=== PATIENT | female | born 1955 | race Caucasian/White ===

== ENCOUNTER 2017-02-20 10:08 | Outpatient (CLI) | payer BC | END 2017-02-20 10:09 | disposition home or self-care (01) | DX: M77.31 Calcaneal spur, right foot (principal) ==

== ENCOUNTER 2021-04-06 05:04 | Outpatient (CLI) | payer MEDICARE, OTHER | END 2021-04-06 05:05 | disposition EMS.NT | LOC: EMS 05:04 | DX: M25.512 Pain in left shoulder (principal); R07.81 Pleurodynia ==

== ENCOUNTER 2021-04-06 05:47 | Emergency (ER) | payer MEDICARE, OTHER ==
[2021-04-06] MEDS ORDERED: KETOROLAC 60 MG/2 ML VIAL IM STA (06:08)
[2021-04-06] MEDS ORDERED: HYDROmorphone 1 MG/ML CARPUJECT IM STA (06:08)
--- NOTE | 2021-04-06 06:11 | ED Physician Documentation ---
PD HPI MAJOR TRAUMA - Stated complaint Stated Complaint: LOW BACK PX, L RIB PX - Chief complaint Chief Complaint: Trauma Ch/Bk - History obtained from History obtained from: Patient - Additional information Additional information: Fell 3 days ago on Sunday. Trip and fall onto her left side hitting the ground. She has severe left-sided chest pain radiating towards the back. No head injury or other injuries. It hurts to talk and take a deep breath. Review of Systems Constitutional: reports: Reviewed and negative Nose: reports: Reviewed and negative Cardiac: reports: Chest pain / pressure. denies: Palpitations, Pedal edema, Calf pain Respiratory: denies: Cough PD PAST MEDICAL HISTORY - Present Medications Home Medications: Ambulatory Orders Medication Instructions Recorded Confirmed Lidocaine Patch 5% [Lidoderm Patch] 1 patch TOP DAILY PRN #14 patch 04/06/21 oxyCODONE [Roxicodone] 1 - 2 tab PO Q4-6H PRN #30 tablet 04/06/21 - Allergies Allergies/Adverse Reactions: Allergies Allergy/AdvReac Type Severity Reaction Status Date / Time No Known Drug Allergies Allergy Verified 04/06/21 05:51 - Social History Does the pt smoke?: No Smoking Status: Never smoker Does the pt drink ETOH?: No Does the pt have substance abuse?: No - Immunizations Immunizations are current?: Yes PD ED PE NORMAL - Vitals Vital signs reviewed: Yes - General General: Alert and oriented X 3, Other (She appears uncomfortable especially with deep breathing and motion) - Neck Neck: Supple, no meningeal sign, No bony TTP - Cardiac Cardiac: RRR, No murmur - Respiratory Respiratory: No respiratory distress, Clear bilaterally, Other (Quite tender to the left lateral chest wall) - Abdomen Abdomen: Non tender - Back Back: No spinal TTP - Extremities Extremities: No deformity, No tenderness to palpate, Normal ROM s pain - Neuro Neuro: Alert and oriented X 3, Normal speech Results - Vitals Vitals: Vital Signs - 24 hr 04/06/21 05:52 Temperature 36.5 C Heart Rate 60 Respiratory 16 Rate Blood Pressure 160/64 H O2 Saturation 97 Oxygen O2 Source Room air - Rads (name of study) CT Chest Radiology: EMP read contemporaneously (Left ribs 6 and 7 minimally displaced fractures, trace left pleural effusion and bibasilar atelectatic change.) PD MEDICAL DECISION MAKING - ED course ED course: I am prescribing a short course of short-acting opioid pain medication for this patient. I have reviewed the patients [employer] and no concerning findings were noted. I have discussed that the opioids are for short term therapy only, and w ill not be refilled from the ED. Departure - Departure Disposition: 01 Home, Self Care Clinical Impression: Fracture of rib Qualifiers: Encounter type: initial encounter Rib fracture type: multiple ribs Fracture type: closed Laterality: left Qualified Code(s): S22.42XA - Multiple fractures of ribs, left side, initial encounter for closed fracture Condition: Good Record reviewed to determine appropriate education?: Yes Instructions: ED Fx Rib Prescriptions: Lidocaine Patch 5% [Lidoderm Patch] 1 patch TOP DAILY PRN #14 patch PRN Reason: pain oxyCODONE [Roxicodone] 1 - 2 tab PO Q4-6H PRN #30 tablet PRN Reason: Pain Comments: In addition to the oxycodone and lidocaine patches you can take Tylenol and Advil per package instructions as needed for pain. Follow-up with your doctor in a week for recheck. Use the incentive spirometer as often as you can until you have close to 0 pain when doing it. I am prescribing a short course of narcotic pain medication for you. These are potentially dangerous and addictive medications that should be used carefully. These medications may constipate you. Take an jlaf-jwn-eztetsz stool softener (docusate) twice daily with plenty of water while taking these medications. If you go 24 hours without a bowel movement, take znqz-htf-qvrexak miralax, per package instructions. Do not drink or drive while taking these medications. If you received narcotic or sedating medications while in the emergency depart ment, do not drive for 24 hours. Store this medication in a safe, secure place and out of reach of children. It is a violation of federal law to give or sell this medication to another person or to use in a manner other than prescribed. The ED will not refill narcotic prescriptions, including prescriptions lost or stolen. To dispose of unwanted medications: 1. [facility] at [address] in [place] has a medication drop box. They accept prescription medications (in pill form) Sunday through Sunday 9:00 a.m. to 5:00 p.m. 2. The [facility] [employer] accepts prescription medications (in pill form only) for disposal year round. Call for more information. 3. Contact the [facility] for the next [facility] sponsored prescription drug collection event. , [phone], or [phone]; Note that many narcotic pain relievers also contain Tylenol/acetaminophen. Please ensure that your total dose of acetaminophen from all sources does not exceed 3 g (3000 mg) per day.
[2021-04-06] MEDS ORDERED: oxyCODONE 5 MG TABLET PO STA (06:49)
[2021-04-06] MEDS ORDERED: LIDOCAINE PATCH 5% TOP STA (06:49)
[2021-04-06 07:48] VITALS: BP 160/70
--- NOTE | 2021-04-06 08:47 | CT Report ---
PROCEDURE: CHEST WO INDICATIONS: Chest wall injury TECHNIQUE: Noncontrast 5 mm thick sections acquired from the pulmonary apices to the posterior costophrenic angl es. 7 mm thick coronal and sagittal MIP reformats were then acquired. For radiation dose reduction, the following was used: automated exposure control, adjustment of mA and/or kV according to patient size. COMPARISON: None. FINDINGS: Image quality: Excellent. Lungs and pleura: No acute air space opacities. No pneumothorax. Central and peripheral airways ar e patent and normal in caliber. Mild bibasilar atelectasis. Trace bilateral pleural effusion. No sep roni thickening or nodularity. Ill-defined, possible 7 mm superior segment left lower lobe nodular den sity best seen on image 91, series 4. Mediastinum: Heart size is normal. No pericardial effusion. Mild amount of scattered atheroscleroti c calcifications of the coronary arteries. No mediastinal adenopathy by size criteria. Thoracic aor ta and central pulmonary arteries are normal in size. Esophagus is normal in caliber. No hiatal her rachell. Bones and chest wall: Acute, minimally displaced lateral left sixth and seventh rib fractures. Age i ndeterminate, but likely chronic fractures of the posterior left eighth and ninth ribs. No suspicious bony lesions. No acute vertebral body compression fractures. No axillary or supraclavicular adenop athy by size criteria. The thyroid is normal in size and there are no incidental findings. Abdomen: Visualized upper abdominal solid organs and bowel loops appear normal in the absence of con trast. Coarse splenic calcification is noted. IMPRESSION: 1. Acute, minimally displaced lateral left sixth and seventh rib fractures. Trace pleural effusion. N o pneumothorax. 2. Possible 7 mm superior segment left lower lobe nodule. Recommend follow-up chest CT in 6-12 months to document stability versus resolution. 3. Mild bibasilar atelectasis. Otherwise, no acute cardiopulmonary abnormalities. CLINICAL RECOMMENDATION STATEMENTS: In patients <35 years with an ITN detected on CT, MRI, or extrathyroidal ultrasound, the Committee re commends further evaluation with dedicated thyroid ultrasound if the nodule is ?1 cm and has no suspi cious imaging features, and if the patient has normal life expectancy. In patients ?35 years with an ITN detected on CT, MRI, or extrathyroidal ultrasound, the Committee re commends further evaluation with dedicated thyroid ultrasound if the nodule is ?1.5 cm and has no sarbjit picious imaging features, and if the patient has normal life expectancy. (ACR, 2014) Reviewed by: Eddie Alarcon MD on 04/06/2021 8:46 AM PDT Approved by: Eddie Alarcon MD on 04/06/2021 8:46 AM PDT Station ID: [id number]
== END 2021-04-06 07:58 | disposition home or self-care (01) ==
LOC: ED 05:47
DX: S22.42XA Multiple fractures of ribs, left side, initial encounter for closed fracture (principal); M54.5 Low back pain; W01.0XXA Fall on same level from slipping, tripping and stumbling without subsequent striking against object, initial encounter
CPT/HCPCS: 71250; 96372; 99284; A9270; J1170